=== PATIENT | female | born 1940 | race Caucasian/White ===

== ENCOUNTER 2017-06-20 10:55 | Emergency (ER) | payer OTHER ==
[~2017-06-20] VITALS: Ht 154.9 cm; Wt 72.6 kg
[2017-06-20 10:55] VITALS: BP_SYST 110; BP_SYST 154
--- NOTE | 2017-06-20 10:55 | NUR ---
BROUGHT BACK TO BED #8 AND TRIAGED. REPORT GIVEN TO MARY
--- NOTE | 2017-06-20 11:20 | NUR ---
Patient, aao x 4, from home with complaint of "No pain, I feel pressure to my left chest area." Upon assessment, patient presents as pressure to left chest wall, generalized weakness, no shortness of breath, or chills noted. Patient has pacemaker, placed 1 year ago. No diarrhea, fever, nausea or vomitting per patient, none noted.
--- NOTE | 2017-06-20 11:23 | NUR ---
Dr. Zamora at bedside examining patient.
[2017-06-20 11:47] LABS: BASOPHILS % (AUTO) 0.5 % (0.0-2.0); EOSINOPHILS # (AUTO) 0.1 K/uL (0.0-0.4); EOSINOPHILS % (AUTO) 1.5 % (0.0-4.0); HEMATOCRIT 38.3 % (36-48); HEMOGLOBIN 12.9 g/dL (12.0-16.0); LYMPHOCYTES # (AUTO) 1.4 K/uL (1.0-5.5); LYMPHOCYTES % (AUTO) 21.8 % (20.5-51.5); MEAN CORPUSCULAR HEMOGLOBIN 29 pg (27-31); MEAN CORPUSCULAR HGB CONC 34 % (32-36); MEAN CORPUSCULAR VOLUME 86 fL (79.0-98.0); MONOCYTES # (AUTO) 0.4 K/uL (0.0-1.0); MONOCYTES % (AUTO) 5.9 % (1.7-9.3); NEUTROPHILS # (AUTO) 4.4 K/uL (1.8-7.7); NEUTROPHILS % (AUTO) 70.3 % (40.0-70.0); PLATELET COUNT (AUTO) 219 K/uL (130-430); RED BLOOD CELL COUNT(AUTO) 4.47 MIL/uL (4.2-6.2); RED CELL DISTRIBUTION WIDTH 14.4 % (9.0-15.0); WHITE BLOOD COUNT (AUTO) 6.4 K/uL (4.8-10.8)
[2017-06-20 11:58] LABS: ANION GAP 8 (5-15); CHLORIDE 104 mmol/L (98-107); CREATININE 0.98 mg/dL (0.55-1.30); GLUCOSE 101 mg/dL (70-99); POTASSIUM 3.2 mmol/L (3.5-5.1); SODIUM SERUM 142 mmol/L (136-145); UREA NITROGEN, BLOOD 21 mg/dL (8-21)
[2017-06-20 12:03] LABS: PROTHROMBIN TIME 9.9 SECS (9.5-12.5)
[2017-06-20 12:06] LABS: ALANINE AMINOTRANSFERASE 8 U/L (12-78); ALBUMIN 3.1 g/dL (3.4-4.8); ASPARTATE AMINOTRANSFERASE 18 U/L (10-37); TOTAL BILIRUBIN 0.3 mg/dL (0.0-1.0)
[2017-06-20] MEDS ORDERED: POTASSIUM CHLORIDE 20 MEQ/PKT PACKET PO ONE (14:15)
--- NOTE | 2017-06-20 14:59 | NUR ---
Patient given written and verbal discharge instructions and verbalizes understanding. ER MD discussed with patient the results and treatment provided. Patient in stable condition. ID arm band removed. IV catheter removed intact and dressing applied, no active bleeding. NO Rx given. Patient educated on pain management and to follow up with PMD. Pain Scale 0/10 Opportunity for questions provided and answered.
[2017-06-20 15:08] VITALS: BP_SYST 142
== END 2017-06-20 15:07 | disposition home or self-care (01) ==
LOC: SED 10:55
DX: R00.2 Palpitations (principal); Z95.0 Presence of cardiac pacemaker
CPT/HCPCS: 36415; 71045; 80053; 82550-TC; 84484; 85025; 85610-TC; 85730-TC; 93005; 99285